=== PATIENT | female | born 1970 | race Two or more races ===

== ENCOUNTER → 2024-11-23 | Outpatient (CLI) | payer MEDICAID, SELFPAY ==
--- NOTE | 2024-11-23 13:45 | XR_ITS ---
Examination: Screening digital mammography, bilateral Computer aided detection 3-D breast Tomosynthesis, bilateral Date and time of exam: November 23, 2024 1533 hours Indication: Screening Technique: Nonmagnified MLO, CC views of the breasts to been obtained, reconstructed from 3-D Tomosynthesis images. R2 computer aided detection program utilized for evaluation of suspicious masses and/or abnormal calcifications. 3-D Tomosynthesis images obtained. Findings: Scattered areas of fibroglandular density. Benign calcifications. No interval suspicious masses Impression: BI-RADS category II: Benign Findings. Recommend 1 year follow-up mammogram.
== END | disposition home or self-care (01) ==
DX: Z12.31 Encounter for screening mammogram for malignant neoplasm of breast (principal); R92.323 Mammographic fibroglandular density, bilateral breasts; R92.1 Mammographic calcification found on diagnostic imaging of breast
CPT/HCPCS: 77063; 77067

== ENCOUNTER → 2025-07-13 | Outpatient (CLI) | payer MEDICAID, SELFPAY ==
--- NOTE | 2025-07-13 14:30 | XR_ITS ---
EXAMINATION: Ultrasound liver elastography Date and time: July 13, 2025, 1505 hours INDICATIONS: Abnormal liver function test on laboratory examination performed 2 months ago TECHNIQUE AND FINDINGS: Multiple sonographic images of the liver including assessment tissue stiffness average Liver 13.0 cm irregular contour fatty infiltration Normal hepatopetal portal venous flow Patent IVC Tissue stiffness average 1.1 m/s normal range IMPRESSION:: Normal tissue stiffness average
== END | disposition home or self-care (01) ==
DX: R94.5 Abnormal results of liver function studies (principal)
CPT/HCPCS: 76981